=== PATIENT | female | born 1970 | race Caucasian/White ===

== ENCOUNTER 2016-05-29 17:26 | Emergency (ER) | payer BC, OTHER ==
[~2016-05-29 17:26] MED LIST: DELTASONE DPS10 MG PO; IMODIUM DPS2 MG PO; PROVENTIL2.5 MG/0.5 IH; ZITHROMAX250 MG PO; ZOFRAN ODT4 MG PO
--- NOTE | 2016-06-01 13:18 | ER ---
ADMIT: 05/29/2016 RM/LOC: ER [facility] MR#: [id number] [address] [facility] [address] [place] [phone] JAVIER CROCKER [address] [place] [phone] Emergency Room Report SEX: F AGE: 45 : 1970 DATE: 05/29/2016 TIME: 1726 hours. Please refer to my T-sheet for complete H and P. HISTORY OF PRESENT ILLNESS: Briefly, the patient was playing softball, felt a pull in her right calf. She has been walking on it and it happened about 3 to 4 hours ago, but it does hurt her. It is getting worse. PHYSICAL EXAMINATION: EXTREMITIES: Her right gastroc is tender. Her Achilles tendon is intact. No pain over the knee or ankle. Neurovascularly intact distally. EMERGENCY DEPARTMENT COURSE: X-ray of her tib-fib showed no fracture. She was given 800 of Motrin. Given crutches. Ready for discharge. ASSESSMENT: Right gastrocnemius strain. PLAN: Rest, ice, elevate. Follow up with Dr. Pozo in 2 to 3 days. Return if worse. Motrin 800, gave her 30. Ernesto Steiner MD/ [facility] JOB #: [id number] CC: Ernesto Steiner MD, Attending Physician Magui Pozo MD, Family Physician
== END 2016-05-29 18:20 | disposition home or self-care (01) ==
LOC: ER 17:26
DX: S86.811A Strain of other muscle(s) and tendon(s) at lower leg level, right leg, initial encounter (principal); F17.210 Nicotine dependence, cigarettes, uncomplicated; Z90.49 Acquired absence of other specified parts of digestive tract; Y93.64 Activity, baseball; Y99.8 Other external cause status; Y92.830 Public park as the place of occurrence of the external cause

== ENCOUNTER 2016-07-27 21:24 | Emergency (ER) | payer BC, OTHER ==
--- NOTE | 2016-07-28 01:26 | ER ---
ADMIT: 07/27/2016 RM/LOC: ER [facility] MR#: [id number] [address] [facility] [address] [place] [id number] JAVIER CROCKER [address] [place] [phone] Emergency Room Report SEX: F AGE: 45 : 1970 DATE: 07/27/2016 TIME: 2124 hours. PRIMARY CARE: Dr. Pozo. Please refer to my T-sheet for complete H and P. Briefly, the patient is a 45-year-old, who was out playing volleyball when she heard a pop of her left Achilles area or low calf. She has been unable to walk on it, severe pain. PHYSICAL EXAMINATION: VITAL SIGNS: Stable. EXTREMITIES: She has pain in the distal gastrocs and soleus area. The tendon is actually palpable. The tear maybe up higher, but I think she has a tear. She is neurovascularly intact distally. EMERGENCY DEPARTMENT COURSE: I placed her in a walking boot. She had crutches at home. She did not want anything stronger for pain. She is ready for discharge. ASSESSMENT: Left gastrocnemius tear. PLAN: Walk and move. Follow up with Dr. Mcdonough this week. Return if worse. Rest, ice, and elevate. Tylenol or Motrin. Ernesto Steiner MD/ [facility] JOB #: [id number] CC: Ernesto Steiner MD, Attending Physician
== END 2016-07-27 22:35 | disposition home or self-care (01) ==
LOC: ER 21:24
DX: S86.912A Strain of unspecified muscle(s) and tendon(s) at lower leg level, left leg, initial encounter (principal); X58.XXXA Exposure to other specified factors, initial encounter; Y93.68 Activity, volleyball (beach) (court)